=== PATIENT | female | born 1980 | race Caucasian/White ===

== ENCOUNTER → 2016-09-16 | Outpatient (CLI) | payer OTHER ==
--- NOTE | 2016-09-17 08:10 | US ---
EXAMINATION TYPE: US abdomen limited DATE OF EXAM: 09/16/2016 9:39 AM COMPARISON: NONE CLINICAL HISTORY: US. :, Right upper quadrant pain, and epigastric pain all per order. Right upper qu adrant and epigastric pain 1 month ago per technologist. EXAM MEASUREMENTS: Liver Length: 15.0 cm Gallbladder Wall: 0.1 cm CBD: 0.11 cm ANATOMY: The IVC is seen of the hepatic dome. Visualized pancreas shows no worrisome pancreatic mass or ductal dilatation. Liver is homogeneous in echotexture without evidence of worrisome intrahepatic mass or i ntrahepatic ductal dilatation. Common bile duct is within normal limits. Gallbladder is seen without shadowing mobile gallstones, pericholecystic fluid collection, or abnormal gallbladder wall thickenin g. Limited images of right kidney show no gross hydronephrosis. IMPRESSION: No shadowing mobile gallstones or ultrasound evidence for acute cholecystitis.
== END | disposition home or self-care (01) ==
LOC: RADXRYALE 08:56
PROVIDERS: ATTEND Physician Assistant Medical
DX: K80.50 Calculus of bile duct without cholangitis or cholecystitis without obstruction (principal); R10.11 Right upper quadrant pain; R10.13 Epigastric pain
CPT/HCPCS: 76705

== ENCOUNTER → 2017-10-02 | Outpatient (CLI) | payer MEDICAID ==
--- NOTE | 2017-10-02 13:57 | MM ---
Reason for exam: screening (asymptomatic). Baseline mammogram. History: Patient had first child at age 30. Physical Findings: Nurse Summary: 0.5cm nodule in the right breast at 11 o'clock upper outer quadrant (nurse ms). MG 3D Screening Mammo W/Cad Bilateral CC and MLO view(s) were taken. The breast tissue is heterogeneously dense. This may lower the sensitivity of mammography. No suspicious abnormality. These results were verbally communicated with the patient and result sheet given to the patient on 10/02/17. ASSESSMENT: Negative, BI-RAD 1 RECOMMENDATION: Routine screening mammogram of both breasts in 1 year.
== END | disposition home or self-care (01) ==
LOC: RADMAMWWP 12:46
PROVIDERS: ATTEND Obstetrics & Gynecology
DX: Z12.31 Encounter for screening mammogram for malignant neoplasm of breast (principal)
CPT/HCPCS: 77063; 77067